=== PATIENT | female | born 1945 | race Caucasian/White ===

== ENCOUNTER → 2022-03-21 | Outpatient (CLI) | payer MEDICARE, SELFPAY ==
--- NOTE | 2022-03-21 12:09 | RAD_ITS ---
STUDY: X-RAY CHEST REASON FOR EXAM: Female, 77 years old. COUGH TECHNIQUE: PA and lateral views of the chest. COMPARISON: None. FINDINGS: Hyperinflation. On the lateral view, there is evidence of a 1.8 cm x 2.3 cm rounded density projecting over the T7 or T8 thoracic vertebrae. This may represent either a bony lesion versus possible left or right hilar nodule. Correlation with the CT scan of the chest is recommended. There is no demonstrated pleural abnormality. Normal size heart. Normal mediastinum and lorenzo. Normal visualized pulmonary arteries. There is atherosclerotic calcification of the aortic arch with tortuosity. Normal visualized thoracic spine. Normal visualized ribs, clavicles, and shoulders. There is no demonstrated abnormality of the visualized soft tissue structures of the upper abdomen. RAD/Chest PA and Lateral IMPRESSION: Questionable rounded density projecting over the mid dorsal vertebrae as described. Correlation with the CT scan of the thorax is recommended for further evaluation. Electronically Signed: Kenrick Garcia MD at 12:51 EST ,
== END | disposition home or self-care (01) ==
PROVIDERS: PCP Family Medicine; Referring Provider Internal Medicine Pulmonary Disease; Visit Provider Internal Medicine Pulmonary Disease
DX: I05.9 Rheumatic mitral valve disease, unspecified (principal); I70.0 Atherosclerosis of aorta; I47.9 Paroxysmal tachycardia, unspecified; R05.9 Cough, unspecified
CPT/HCPCS: 71046

== ENCOUNTER → 2022-05-24 | Outpatient (CLI) | payer MEDICARE, SELFPAY ==
--- NOTE | 2022-05-24 13:30 | CT_ITS ---
INDICATION: COUGH EXAMINATION: CT CHEST WITHOUT CONTRAST - CT Chest W/O Contrast Injection TECHNIQUE: Helically acquired images were obtained of the chest. A radiation dose optimization technique was used for this scan. IV Contrast dosage and agent: None. COMPARISON: Chest x-ray 03/21/2022 FINDINGS: LUNGS, PLEURA AND LARGE AIRWAYS: No masses, consolidation, or edema. No pleural effusion or thickening. No pneumothorax. THYROID: No thyroid lesions. HEART AND PERICARDIUM: Heart size is normal. No pericardial effusion. CORONARY ARTERIES: Coronary artery calcification is seen. VESSELS: Thoracic aorta is not dilated. MEDIASTINUM AND ZINA: No mediastinal or hilar adenopathy. Esophagus is unremarkable. No hiatal hernia. UPPER ABDOMEN: Irregularity of the contour of the liver suggestive of cirrhosis. Enlargement of the left lobe of liver suggestive of alcoholic liver disease. BONES: No suspicious lytic or blastic abnormality. CT/Chest without Contrast IMPRESSION: 1. No pulmonary nodule or mass. Previously described opacity on chest x-ray is felt to likely represent the descending thoracic aorta. 2. Cirrhosis likely from alcoholic liver disease for Electronically Signed: Srinivas Ingram MD at 21:44 EST ,
== END | disposition home or self-care (01) ==
PROVIDERS: PCP Family Medicine; Visit Provider Internal Medicine Pulmonary Disease
DX: R05.9 Cough, unspecified (principal)
CPT/HCPCS: 71250